=== PATIENT | female | born 1955 | race Caucasian/White ===

== ENCOUNTER 2019-05-03 14:19 | Emergency (ER) | payer BC, MEDICAID ==
[~2019-05-03] VITALS: Ht 167.6 cm; Wt 79.7 kg
[~2019-05-03 14:19] MED LIST: AMOX1TAB10 PO; BENZ1TAB7; PRED20TA PO; PROLIX5; SULF1TAB31 PO
[2019-05-03 14:30] VITALS: BP 129/66; PULSE 79; RESP 18; Ht 167.6 cm; Wt 79.7 kg
--- NOTE | 2019-05-03 14:43 | ERD ---
ER Documentation Chief Complaint Chief Complaint left upper eye lid swollen, itchy & painful since yesterday HPI Patient is a 64-year-old female, past medical history of schizophrenia, presents the ER for concerns of left upper eyelid swelling and itching x1 day. Patient is brought in by her sister. Patient fell asleep yesterday on the patio. Patient states when she woke up she felt something biting her left upper eyelid. Patient states that she noticed that her eyelid was much more swollenpresents the ER. Patient has no fevers or chills. Patient has a blurry vision. Patient has a lip swelling, tongue swelling, difficulty with shortness of breath. ROS All systems reviewed and are negative except as per history of present illness. Medications Home Meds Active Scripts Amoxicillin/Potassium Clav (Amox-Clav 875-125 mg Tablet) 875-125 mg Tab, 1 TAB PO BID for 7 Days, #14 TAB Prov:PRASAD GRIFFIN PA-C 05/03/19 Sulfamethoxazole/Trimethoprim* (Bactrim Ds* Tablet) 1 Each Tablet, 1 TAB PO BID, #14 TAB Prov:PRASAD GRIFFIN PA-C 05/03/19 Prednisone* (Prednisone*) 20 Mg Tab, 40 MG PO DAILY for 4 Days, TAB Prov:PRASAD GRIFFIN PA-C 05/03/19 Reported Medications Fluphenazine Hcl* (Prolixin*) 5 Mg Tab 04/03/10 Benztropine Mesylate* (Cogentin*) 1 Mg Tab 04/03/10 Allergies Allergies: Coded Allergies: No Known Allergies (Verified Allergy, Mild, 04/16/10) PMhx/Soc History of Surgery: No Anesthesia Reaction: No Hx Neurological Disorder: No Hx Respiratory Disorders: No Hx Cardiac Disorders: No Hx Psychiatric Problems: Yes (PARANOID SCHIZ. DEPRESSION) Hx Miscellaneous Medical Probl: No Hx Alcohol Use: No Hx Substance Use: No Hx Tobacco Use: No FmHx Family History: No diabetes Physical Exam Vitals Vital Signs Date Temp Pulse Resp B/P (MAP) Pulse Ox O2 O2 Flow FiO2 Time Delivery Rate 05/03/19 97.7 79 18 129/66 99 14:30 (87) Physical Exam GENERAL: Well-developed, well-nourished female. Appears in no acute distress. HEAD: Normocephalic, atraumatic. EYES: Pupils are equally reactive bilaterally. EOMs grossly intact. No conjunctival erythema. Left upper eyelid is swollen and erythematous. Upper eyelid is tender to touch. No proptosis. No pain with EOMs. ENT: Moist mucous membranes. No uvula deviation. No kissing tonsils. No lip swelling. No tongue swelling. Oropharynx is open and patient is tolerating secretions well. NECK: Supple. No meningismus. Normal range of motion of the neck. LUNG: Clear to auscultation bilaterally. No rhonchi, wheezing, rales or coarse breath sounds. No stridor. HEART: Regular rate and rhythm. No murmurs, rubs or gallops. EXTREMITIES: Equal pulses bilaterally. No peripheral clubbing, cyanosis or edema. No unilateral leg swelling. NEUROLOGIC: Alert and oriented. Moving all four extremities without any difficulty. Normal speech. Steady gait. SKIN: Normal color. Warm and dry. No rashes or lesions. Procedures/MDM MEDICAL DECISION MAKING: This is a 64-year-old female presents the ER for concerns of left upper eyelid s welling and pain x1 day after getting bit by unknown insect. Vital signs were reviewed. Patient was afebrile. On exam, patient did not have proptosis. Patient had no pain with EOMs. There are concerns of a mild periorbital cellulitis thus patient will be treated with a course of antibiotics. Recheck was advised in 2 days or sooner for any new or worsening symptoms. Patient will also be given prednisone for concerns of allergic reaction. Patient had no signs of anaphylaxis. Low suspicion for orbital cellulitis, deep space infection, globe rupture. Patient was nontoxic, non-opening prior to discharge. PRESCRIPTIONS: Prednisone, Bactrim, Augmentin DISCHARGE: At this time, patient is stable for discharge and outpatient management. Supportive measures were discussed with patient including warm/cool compresses. Patient advised not to wear contact lenses or eye makeup. I have instructed the patient to follow-up with his/her primary care physician in 1-2 days. I have discussed with the patient the possibility of needing to see an specialist managers for further workup if symptoms persist. I have instructed the patient to promptly return to the ER for any new or worsening symptoms including increased pain, fever, swelling, redness, warmth, nausea, vomiting, . The patient and/or family expressed understanding of and agreement with this plan. All questions were answered. Home care instructions were provided. Disclaimer: Inadvertent spelling and grammatical errors are likely due to EHR/dictation software use and do not reflect on the overall quality of patient care. Also, please note that the electronic time recorded on this note does not necessarily reflect the actual time of the patient encounter. Departure Diagnosis: Primary Impression: Periorbital cellulitis Laterality: left Qualified Codes: L03.213 - Periorbital cellulitis Additional Impression: Allergic reaction Encounter type: initial encounter Qualified Codes: T78.40XA - Allergy, unspecified, initial encounter Patient Instructions: Allergic Reaction, Drug, Theresa-Orbital Cellulitis Referrals: FOR[facility] & [facility] YOU HAVE RECEIVED A MEDICAL SCREENING EXAM AND THE RESULTS INDICATE THAT YOU DO NOT HAVE A CONDITION THAT REQUIRES URGENT TREATMENT IN THE EMERGENCY DEPARTMENT. FURTHER EVALUATION AND TREATMENT OF YOUR CONDITION CAN WAIT UNTIL YOU ARE SEEN IN YOUR DOCTORS OFFICE WITHIN THE NEXT 1-2 DAYS. IT IS YOUR RESPONSIBILITY TO MAKE AN APPOINTMENT FOR FOLOW-UP CARE. IF YOU HAVE A PRIMARY DOCTOR --you should call your primary doctor and schedule an appointment IF YOU DO NOT HAVE A PRIMARY DOCTOR YOU CAN CALL OUR PHYSICIAN REFERRAL HOTLINE AT IF YOU CAN NOT AFFORD TO SEE A PHYSICIAN YOU CAN CHOSE FROM THE FOLLOWING [facility] [address] [facility]. [facility] [address] [facility]. [facility] [address] [facility] [facility] [address] [facility] [facility] [address] [facility]. [facility]. [address] [facility] [facility] YOU HAVE RECEIVED A MEDICAL SCREENING EXAM AND THE RESULTS INDICATE THAT YOU DO NOT HAVE A CONDITION THAT REQUIRES URGENT TREATMENT IN THE EMERGENCY DEPARTMENT. FURTHER EVALUATION AND TREATMENT OF YOUR CONDITION CAN WAIT UNTIL YOU ARE SEEN IN YOUR DOCTORS OFFICE WITHIN THE NEXT 1-2 DAYS. IT IS YOUR RESPONSIBILITY TO MAKE AN APPOINTMENT FOR FOLOW-UP CARE. IF YOU HAVE A PRIMARY DOCTOR --you should call your primary doctor and schedule and appointment IF YOU DO NOT HAVE A PRIMARY DOCTOR YOU CAN CALL OUR PHYSICIAN REFERRAL HOTLINE AT . IF YOU CAN NOT AFFORD TO SEE A PHYSICIAN YOU CAN CHOSE FROM THE FOLLOWING [facility] INSTITUTIONS: [facility] [address] [place] [address] [facility] [address] [place] [address] [facility] + [facility] [address] [place] [address] Additional Instructions: Return in 2 days for recheck. Return sooner for worsening redness, swelling, fevers, chills or pain. Call your primary care doctor TOMORROW for an appointment during the next 1-2 days.See the doctor sooner or return here if your condition worsens before your appointment time. PRASAD GRIFFIN PA-C May 03, 2019 14:43
== END 2019-05-03 14:36 | disposition home or self-care (01) ==
LOC: E/R 14:19
DX: L03.213 Periorbital cellulitis (principal)
CPT/HCPCS: 99283

== ENCOUNTER 2019-06-19 19:32 | Emergency (ER) | payer BC ==
[~2019-06-19] VITALS: Ht 162.6 cm; Wt 81.2 kg
[~2019-06-19 19:32] MED LIST changes: +BEN50 PO; +HC30CR25 TOP; +MED4DP PO
[2019-06-19 19:35] VITALS: BP 165/88; PULSE 85; RESP 18; Ht 162.6 cm; Wt 81.2 kg
[2019-06-19] MEDS ORDERED: METHYLPREDNISOLONE 125 MG INJ IM ONE (20:30)
[2019-06-19] MEDS ORDERED: DIPHENHYDRAMINE 50 MG INJ IM ONE (20:30)
== END 2019-06-19 20:59 | disposition home or self-care (01) ==
LOC: FTE 19:32
DX: R21 Rash and other nonspecific skin eruption (principal)
CPT/HCPCS: 96372; 99284; J1200; J2930